=== PATIENT | male | born 1970 | race Caucasian/White ===

== ENCOUNTER 2016-12-13 20:05 | Emergency (ER) | payer OTHER ==
--- NOTE | 2016-12-13 22:51 | ED ORDER SUMMARY ---
..... Patient: KAREN SCHWARTZ OrderSheet [facility] VisitID: [id number] [address] [place] [address] 46y, M Registration Date/Time: 12/13/2016 ORDER SHEET Weight: 99.7 kg (stated) Allergies: Allopurinol, Ceftazadine GENERAL ORDERS: CBC w Diff Urgent (21:45 12/13/2016 Brandon Mcelroy) (Ack 21:46 Kiera ER Product Assembler) (Sent 21:58 IJurca ER Tech1) (22:23 IJurca ER Tech1) CMP Urgent (21:45 12/13/2016 Brandon Mcelroy) (Ack 21:46 Kiera ER Product Assembler) (Sent 21:58 IJurca ER Tech1) (22:23 IJurca ER Tech1) MEDICATION ORDERS: Fluorescein Eye Strips 1 strips (NOW) (21:01 12/13/2016 Brandon Mcelroy) (Ack 21:03 JQuivey R.N.) (21:28 JQuivey R.N.) Proparacaine Eye Drops (Solution 0.5 %) 2 drops (place at bedside) (21:01 12/13/2016 Brandon Mcelroy) (Ack 21:03 JQuivey R.N.) (21:28 JQuivey R.N.) Percocet PO 5/325 mg (HIGH ALERT MEDICATION, NOW) (21:21 12/13/2016 Brandon Mcelroy) (21:30 JRomanelli R.N.) Percocet PO 5/325 mg (HIGH ALERT MEDICATION, NOW) (22:18 12/13/2016 Brandon Mcelroy) (Ack 22:36 JQuivey R.N.) (22:39 JQuivey R.N.) - (gabapentin 300 mg PO once now) (22:48 12/13/2016 Brandon Mcelroy) (Cancelled: Physician Order23:17 JRomanelli R.N.) IV FLUIDS: ORDER SHEET NOTES: [Electronically signed by Kevin Bellamy R.N. (23:18 12/13/2016)] [Electronically signed by Tommy Abrams Dr. (06:25 12/15/2016)] [Electronically locked/signed by Kevin Bellamy R.N. (23:18 12/13/2016)]
--- NOTE | 2016-12-13 22:51 | ED NURSING NOTES ---
Clinical Report - [facility] [address] [place] [address] 12/13/2016 20:06 [id number] Triage time 20:Dec 13 2016. Acuity: LEVEL 3. Chief Complaint: RIGHT EYE PROBLEM. (Shingles Infection). Alert. ART COMA SCORE: Art Coma Scale: 15- eyes open spontaneously (4); best verbal response- oriented x 4 (5); best motor response- obeys commands (6). --20:19 Kevin Bellamy R.N. 20:09 12/13/16. BP: 137/89. HR: 102. RR: 16. O2 saturation: 100% on room air. Temp: 98.7 F (oral). --20:19 Kevin Bellamy R.N. VISUAL ACUITY: Visual acuity performed: left eye 20/70; right eye 20/50. --20:33 Kevin Bellamy R.N. Weight: 99.7 kg stated. Height/Length: 75 inches Per Patient. BMI: 27.5. --20:17 Kevin Bellamy R.N. Medications Acyclovir Oral 800 mg, 5 x daily. Acyclovir Oral. --20:13 Kevin Bellamy R.N. Olfloxcin 0.3 % eye gtts--one gtt to affected eye, 4x a day. --20:26 Kevin Bellamy R.N. Zoloft Oral 100 mg, daily. --20:29 Kevin Bellamy R.N. The following entry was struck by Kevin Bellamy R.N., 20:31 (12/13/16) Reason - other. <<STRICKEN ENTRY-- Acyclovir Oral 800 mg, 2x a day. --20:24 Kevin Bellamy R.N. --END STRIKE>> The following entry was struck and corrected by Kevin Bellamy R.N., 20:30 (12/13/16) Reason for correction - other. <<STRICKEN ENTRY-- Acyclovir Oral. --20:13 Kevin Bellamy R.N. --END STRIKE>>. Allergies Allopurinol.(Anaphylaxis, angioedema) Ceftazadine.(angioedema) --20:24 Kevin Bellamy R.N. History Arrived by private vehicle. Historian: patient. Unaccompanied. Primary physician (Jaime [place], [place]). ( Shigles infection (R) Eye. Pt states that the infection was diagnosed yesterday and was placed on Acylovir and and antibiotic (he can't remember the name). Pt thinks that the infection started about 7 days ago). Onset. (about 7 days ago). He did not sustain an injury. He has had eye discomfort involving the right eye. SOCIAL HX: Former smoker, end date 2005. No alcohol use or drug use. No infectious disease exposure. ABUSE ASSESSMENT: No report of abuse. FALL RISK ASSESSMENT: Fall risk assessment completed. No fall risk identified. NUTRITIONAL RISK ASSESSMENT: The nutritional risk assessment revealed no deficiencies. FUNCTIONAL ASSESSMENT: Functional assessment: no impairments noted. LEARNING NEEDS ASSESSMENT: The learning needs assessment revealed no barriers. SKIN INTEGRITY ASSESSMENT: Skin integrity risk assessment completed. No skin integrity risk identified. --20:19 Kevin Bellamy R.N. PROBLEMS: Contusion. Fall. Chemotherapy-completed. Leukemia. Hypokalemia. Hyponatremia. Thrombocytopenia. Neutropenia. Anemia. Depression. Anxiety Reaction. AML. --20:30 Kevin Bellamy R.N. ADDITIONAL SURGERIES: Bone marrow transplant. Central venous cannula insertion. Tonsillectomy. --20:30 Kevin Bellamy R.N. Interventions ID band on patient. To treatment room. --20:19 Kevin Bellamy R.N. PHYSICAL ASSESSMENT Ambulatory to room. GENERAL / NEURO / PSYCH: Alert. Appears in pain. HEENT: No facial asymmetry noted. Pupils equal, round and reactive to light. RESPIRATORY: Respirations not labored. CVS: Capillary refill less than 2 seconds. SKIN: Skin is warm and dry. Normal skin turgor. --20:32 Kevin Bellamy R.N. NURSING PROGRESS NOTES Patient gowned. Reassurance given. Patient identifiers checked. Call light placed in reach. Side rails up x 1. Bed placed in lowest position. Brakes of bed on. Patient ready for evaluation- chart flagged and ED physician notified. --20:32 Kevin Bellamy R.N. 21:18 12/13/2016 FLUORESCEIN Opth soln 1 Strip given. (placed at bedside). --21:28 Kevin Trujillo R.N. 21:18 12/13/2016 Proparacaine Eye Drops 2 drop given. (placed at bedside). --21:28 Kevin Trujillo R.N. 21:30 12/13/2016 Percocet (Oxycodone-Acetaminophen) PO 5/325 mg Tablets 1 tab given. Allergies verified, confirmed 5 rights and sedative warning given. --21:30 Kevin Bellamy R.N. Patient ID band checked for patient name and birthdate: patient confirmed. Blood samples drawn from the right antecubital space with 23g butterfly by tech ; labeled in presence of the patient and sent to lab: [employer] set. --21:57 Ran Ballard, BEN Tech1 22:38 12/13/2016 Percocet (Oxycodone-Acetaminophen) PO 10/650 mg Tablets 1 tab given. Allergies verified, confirmed 5 rights and sedative warning given to the patient. --22:39 Kevin Trujillo R.N. DISPOSITION / DISCHARGE 22:55 12/13/16. BP: 123/87. HR: 74. RR: 16. O2 saturation: 99% on room air. Temp: 98.3 F (oral). Pain level now: 8/10. Additional comments: (R)s marly of head and (R) Eye pain. --23:08 Kevin Bellamy R.N. Departure time: 5. --23:11 Kevin Bellamy R.N. 22:55. Condition at departure: improved. No learning barriers present. Discharge instructions provided and reviewed with the patient. Reviewed medication(s) information (prescription given to pt. Continue taking your usually prescribed medications). Reviewed referral to family practice for followup. Patient verbalized understanding. Written instructions provided in German. The patient was discharged by the physician. He was discharged home and accompanied by tax manager. He left the Emergency Department ambulatory and via private vehicle. Operations Section Manager driving. FALL RISK ASSESSMENT: Fall risk assessment completed. No fall risk identified. --23:14 Kevin Bellamy R.N. Locked/Released at 12/13/2016 23:18 by Kevin Bellamy R.N.
--- NOTE | 2016-12-13 22:51 | ED ORDER SUMMARY ---
..... Patient: KAREN SCHWARTZ OrderSheet [facility] VisitID: [id number] [address] [place] [address] 46y, M Registration Date/Time: 12/13/2016 ORDER SHEET Weight: 99.7 kg (stated) Allergies: Allopurinol, Ceftazadine GENERAL ORDERS: CBC w Diff Urgent (21:45 12/13/2016 Brandon Mcelroy) (Ack 21:46 Kiera ER Drain Tiler) (Sent 21:58 IJurca ER Tech1) (22:23 IJurca ER Tech1) CMP Urgent (21:45 12/13/2016 Brandon Mcelroy) (Ack 21:46 Kiera ER Drain Tiler) (Sent 21:58 IJurca ER Tech1) (22:23 IJurca ER Tech1) MEDICATION ORDERS: Fluorescein Eye Strips 1 strips (NOW) (21:01 12/13/2016 Brandon Mcelroy) (Ack 21:03 JQuivey R.N.) (21:28 JQuivey R.N.) Proparacaine Eye Drops (Solution 0.5 %) 2 drops (place at bedside) (21:01 12/13/2016 Brandon Mcelroy) (Ack 21:03 JQuivey R.N.) (21:28 JQuivey R.N.) Percocet PO 5/325 mg (HIGH ALERT MEDICATION, NOW) (21:21 12/13/2016 Brandon Mcelroy) (21:30 JRomanelli R.N.) Percocet PO 5/325 mg (HIGH ALERT MEDICATION, NOW) (22:18 12/13/2016 Brandon Mcelroy) (Ack 22:36 JQuivey R.N.) (22:39 JQuivey R.N.) - (gabapentin 300 mg PO once now) (22:48 12/13/2016 Brandon Mcelroy) (Cancelled: Physician Order23:17 JRomanelli R.N.) IV FLUIDS: ORDER SHEET NOTES: [Electronically signed by Kevin Bellamy R.N. (23:18 12/13/2016)] [Electronically signed by Tommy Abrams Dr. (06:25 12/15/2016)] [Electronically locked/signed by Kevin Bellamy R.N. (23:18 12/13/2016)]
--- NOTE | 2016-12-13 22:51 | ED CLINICAL REPORT ---
Clinical Report - Physicians/Mid Levels [facility] [address] [place] [address] 12/13/2016 20:06 Patient: KAREN SCHWARTZ Time Seen: 2100. Arrived- By private vehicle. Historian- patient. HISTORY OF PRESENT ILLNESS Chief Complaint: EYE REDNESS and IRRITATION. This started 1 week ago, involves the right eye, is characterized as moderate in severity and is still present. Eye pain, discomfort, burning, redness and irritation. Similar symptoms previously: (no). Seen in a clinic. Evaluation/treatment: medication prescribed. Diagnosis: (shingles). REVIEW OF SYSTEMS No fever, sore throat or cough. All systems otherwise negative, except as recorded above. PAST HISTORY See nurses notes. Tetanus immunization status is up-to-date. Medications: Zoloft Oral 100 mg, daily. Olfloxcin 0.3 % eye gtts--one gtt to affected eye, 4x a day. Acyclovir Oral 800 mg, 5 x daily. Acyclovir Oral. Allergies: Allopurinol.(Anaphylaxis, angioedema) Ceftazadine.(angioedema). SOCIAL HISTORY Never smoker. No alcohol use or drug use. ADDITIONAL NOTES The nursing notes have been reviewed. PHYSICAL EXAM Vital Signs: 12/13/2016 20:09 BP: 137/89. HR: 102. RR: 16. O2 saturation: 100%. Temp: 98.7 F. Blood pressure normal. Oxygen saturation normal. Appearance: Alert. Oriented X3. No acute distress. HEENT: Ears normal. Nose normal. Pharynx normal. Head appears normal to external inspection. Eyes: Visual acuity noted- see nurse's notes. Pupils equal, round and reactive to light. Accommodation normal. Anterior chambers clear. +. No consensual photophobia. No foreign bodies. Negative Cell and flare. Small punctate areas of uptake of dye in the superior and inferior aspect of the patient's cornea around the periphery Only on the right. Negative Betsy sign. Negative Betsy sign. No dendritic pattern. Lids and lashes and lacrimal's are unaffected. Right-sided conjunctival injection. Rt Eye: Pupil 3mm. Lt Eye: Pupil 3mm. Neck: Neck supple. Normal inspection. CVS: Normal heart rate and rhythm. Heart sounds normal. Respiratory: No respiratory distress. Breath sounds normal. Abdomen: Nontender. No organomegaly. : Normal genitalia. Skin: (vesicular rash to the V1 dermatome. no other dermatome involved. no involvement of the tip of the nose.). Extremities: Extremities negative. Neuro: Oriented X 3. Mood/affect normal. No motor deficit. No sensory deficit. LABS, X-RAYS, AND EKG Laboratory Tests: CBC w Diff: (SALAS: 12/13/2016 21:53) ( MsgRcvd 12/13/2016 22:05) Final results Test Result Flag Units (Reference) WHITE BLOOD COUNT 8.4 K/uL (4.5-11.5) RED BLOOD COUNT 4.46 L M/uL (4.50-5.90) HEMOGLOBIN 13.8 gm/dL (13.5-17.5) HEMATOCRIT 40.5 L % (41.0-53.0) MEAN CELL VOLUME 91 fL (80-100) MEAN CORPUSCULAR HGB 31 pg (26-34) MEAN CORPUSCULAR HGB CONC 34 g/dL (31-37) RED CELL DISTRIBUTION WIDTH 12.7 % (11.6-14.8) PLATELET COUNT 145 L K/uL (150-400) NEUTROPHIL % 77.8 H % (50-75) LYMPH % 16.0 L % (25-40) MONO % 5.9 % (3-14) EOSINOPHIL % 0.1 % (0-4) BASOPHIL % 0.2 % (0-2) CMP: (SALAS: 12/13/2016 21:53) ( MsgRcvd 12/13/2016 22:15) Final results Test Result Flag Units (Reference) GLUCOSE 114 H mg/dL (70-110) BUN 15 mg/dL (7-18) CREATININE 0.9 mg/dL (0.6-1.3) Estimated GFR >60 mL/min Estimated GFR- >60 mL/min Note: Persistent reduction over 3 months in eGFR<60 mL/min/1.73 m2 defines CKD. Patients with eGFR values>=60 mL/min/1.73 m2 may also have CKD if evidence ofpersistent proteinuria. Additional information may be foundat www.kidney.org. SODIUM 142 mmol/L (136-145) POTASSIUM 4.2 mmol/L (3.5-5.1) CHLORIDE 106 mmol/L (98-107) CARBON DIOXIDE 30 mmol/L (21-32) CALCIUM 9.1 mg/dL (8.5-10.1) TOTAL PROTEIN 7.2 g/dL (6.4-8.2) ALBUMIN 3.7 g/dL (3.3-5.0) BILIRUBIN, TOTAL 0.3 mg/dL (0.0-1.0) ALKALINE PHOSPHATASE 163 H U/L (46-116) AST (SGOT) 23 U/L (15-37) ALT (SGPT) 60 U/L (12-78) . PROGRESS AND PROCEDURES Course of Care: the patient is a 46-year-old male presenting for reevaluation of right-sidedfacial pain and right-sided eye irritation. At this time would be concern for involvement of the patient's right I. Patient fully has involvement of the V1 dermatome however patient does not have any signs of skin rash on the V2 dermatomewhich would be affecting the patient's right cornea. Patient does have a history of leukemia. Patient could be immunocompromised. Patient however does not have any other Concerning systemic symptoms. Because of the patient's findings, we'll consult ophthalmology in regards to his treatment and plan. Treatment has been somewhat complicated because patient has been self medicating with prednisone eyedrops from his prior medical encounters. After consult with ophthalmology was obtained. No further recommendations made except for consult with neurology for possible disseminated zosters. Was able to speak to neurology at [facility]. No concern for disseminated zoster at this time. Did not feel lumbar puncture would be required at this time. Laboratory studies were drawn in anticipation for neurology consult. No significant abnormalities noted with patient's laboratory studies. Because of the patient's negative workup here in the emergency department andrecommendations made by specialist, feel the patient is a stable outpatient candidate. Did not fill patient is being admitted to the hospital at this time. Discussed the patient is workup here in emergency department including diagnosis, home care, follow-up, and return precautions. All questions have been answered. The patient expressed understanding of these instructions and was agreeable to them. Consult obtained from neurology and ophthamology. Disposition: Discharged. Condition: good. CLINICAL IMPRESSION Acute viral conjunctivitis of the right eye. Herpes zoster with keratitis. INSTRUCTIONS Warnings: GENERAL WARNINGS: Return or contact your physician immediately if your condition worsens or changes unexpectedly, if not improving as expected, or if other problems arise. Specifically return if pain, vomiting, bleeding, breathing difficulty or fever. Prescription Medications: Percocet 5 mg/325 mg: take 1-2 tablets orally every 6 hours as needed for pain. Dispense twenty (20). No refill. Substitution is permissible. Gabapentin 300 mg capsules: take 1 orally. Dispense thirty (30). No refill. (as needed for pain every 8 hours) OTC Medications: Lacri-Lube ophthalmic ointment (available over the counter): take according to label instructions. Follow-up: Return to the emergency department as needed. Follow up with your doctor in three days. Reason for referral: recheck today's concerns. Summary of care provided to patient via paper. Screening today revealed the patient's blood pressure to be in the normal range. The patient should follow up with a primary care provider for blood pressure management. Understanding of the discharge instructions verbalized by patient. Follow-up with: Adin Kramer MD, Ophthalmology, , [facility], [address] [place] [address] Follow up. Reason for referral: Call first thing in the morning in 2 days for appointment as soon as possible. Summary of care provided to patient via paper. (Electronically signed by Tommy Abrams Dr. 12/15/2016 6:25)
--- NOTE | 2016-12-13 22:51 | ED NURSING NOTES ---
Clinical Report - Nurses [facility] [address] [place] [address] 12/13/2016 20:06 [id number] Triage time 20:Dec 13 2016. Acuity: LEVEL 3. Chief Complaint: RIGHT EYE PROBLEM. (Shingles Infection). Alert. ART COMA SCORE: Art Coma Scale: 15- eyes open spontaneously (4); best verbal response- oriented x 4 (5); best motor response- obeys commands (6). --20:19 Kevin Bellamy R.N. 20:09 12/13/16. BP: 137/89. HR: 102. RR: 16. O2 saturation: 100% on room air. Temp: 98.7 F (oral). --20:19 Kevin Bellamy R.N. VISUAL ACUITY: Visual acuity performed: left eye 20/70; right eye 20/50. --20:33 Kevin Bellamy R.N. Weight: 99.7 kg stated. Height/Length: 75 inches Per Patient. BMI: 27.5. --20:17 Kevin Bellamy R.N. Medications Acyclovir Oral 800 mg, 5 x daily. Acyclovir Oral. --20:13 Kevin Bellamy R.N. Olfloxcin 0.3 % eye gtts--one gtt to affected eye, 4x a day. --20:26 Kevin Bellamy R.N. Zoloft Oral 100 mg, daily. --20:29 Kevin Bellamy R.N. The following entry was struck by Kevin Bellamy R.N., 20:31 (12/13/16) Reason - other. <<STRICKEN ENTRY-- Acyclovir Oral 800 mg, 2x a day. --20:24 Kevin Bellamy R.N. --END STRIKE>> The following entry was struck and corrected by Kevin Bellamy R.N., 20:30 (12/13/16) Reason for correction - other. <<STRICKEN ENTRY-- Acyclovir Oral. --20:13 Kevin Bellamy R.N. --END STRIKE>>. Allergies Allopurinol.(Anaphylaxis, angioedema) Ceftazadine.(angioedema) --20:24 Kevin Bellamy R.N. History Arrived by private vehicle. Historian: patient. Unaccompanied. Primary physician (Jaime [place], [place]). ( Shigles infection (R) Eye. Pt states that the infection was diagnosed yesterday and was placed on Acylovir and and antibiotic (he can't remember the name). Pt thinks that the infection started about 7 days ago). Onset. (about 7 days ago). He did not sustain an injury. He has had eye discomfort involving the right eye. SOCIAL HX: Former smoker, end date 2005. No alcohol use or drug use. No infectious disease exposure. ABUSE ASSESSMENT: No report of abuse. FALL RISK ASSESSMENT: Fall risk assessment completed. No fall risk identified. NUTRITIONAL RISK ASSESSMENT: The nutritional risk assessment revealed no deficiencies. FUNCTIONAL ASSESSMENT: Functional assessment: no impairments noted. LEARNING NEEDS ASSESSMENT: The learning needs assessment revealed no barriers. SKIN INTEGRITY ASSESSMENT: Skin integrity risk assessment completed. No skin integrity risk identified. --20:19 Kevin Bellamy R.N. PROBLEMS: Contusion. Fall. Chemotherapy-completed. Leukemia. Hypokalemia. Hyponatremia. Thrombocytopenia. Neutropenia. Anemia. Depression. Anxiety Reaction. AML. --20:30 Kevin Bellamy R.N. ADDITIONAL SURGERIES: Bone marrow transplant. Central venous cannula insertion. Tonsillectomy. --20:30 Kevin Bellamy R.N. Interventions ID band on patient. To treatment room. --20:19 Kevin Bellamy R.N. PHYSICAL ASSESSMENT Ambulatory to room. GENERAL / NEURO / PSYCH: Alert. Appears in pain. HEENT: No facial asymmetry noted. Pupils equal, round and reactive to light. RESPIRATORY: Respirations not labored. CVS: Capillary refill less than 2 seconds. SKIN: Skin is warm and dry. Normal skin turgor. --20:32 Kevin Bellamy R.N. NURSING PROGRESS NOTES Patient gowned. Reassurance given. Patient identifiers checked. Call light placed in reach. Side rails up x 1. Bed placed in lowest position. Brakes of bed on. Patient ready for evaluation- chart flagged and ED physician notified. --20:32 Kevin Bellamy R.N. 21:18 12/13/2016 FLUORESCEIN Opth soln 1 Strip given. (placed at bedside). --21:28 Kevin Trujillo R.N. 21:18 12/13/2016 Proparacaine Eye Drops 2 drop given. (placed at bedside). --21:28 Kevin Trujillo R.N. 21:30 12/13/2016 Percocet (Oxycodone-Acetaminophen) PO 5/325 mg Tablets 1 tab given. Allergies verified, confirmed 5 rights and sedative warning given. --21:30 Kevin Bellamy R.N. Patient ID band checked for patient name and birthdate: patient confirmed. Blood samples drawn from the right antecubital space with 23g butterfly by tech ; labeled in presence of the patient and sent to lab: [employer] set. --21:57 Ran Ballard, BEN Tech1 22:38 12/13/2016 Percocet (Oxycodone-Acetaminophen) PO 10/650 mg Tablets 1 tab given. Allergies verified, confirmed 5 rights and sedative warning given to the patient. --22:39 Kevin Trujillo R.N. DISPOSITION / DISCHARGE 22:55 12/13/16. BP: 123/87. HR: 74. RR: 16. O2 saturation: 99% on room air. Temp: 98.3 F (oral). Pain level now: 8/10. Additional comments: (R)s marly of head and (R) Eye pain. --23:08 Kevin Bellamy R.N. Departure time: 5. --23:11 Kevin Bellamy R.N. 22:55. Condition at departure: improved. No learning barriers present. Discharge instructions provided and reviewed with the patient. Reviewed medication(s) information (prescription given to pt. Continue taking your usually prescribed medications). Reviewed referral to family practice for followup. Patient verbalized understanding. Written instructions provided in Uzbek. The patient was discharged by the physician. He was discharged home and accompanied by assistant sales center manager. He left the Emergency Department ambulatory and via private vehicle. Sales Ledger Administrator driving. FALL RISK ASSESSMENT: Fall risk assessment completed. No fall risk identified. --23:14 Kevin Bellamy R.N. Locked/Released at 12/13/2016 23:18 by Kevin Bellamy R.N.
--- NOTE | 2016-12-15 06:25 | ED MAR SUMMARY ---
..... Medication Administration Record [facility] [address] [place] [address] Patient: KAREN SCHWARTZ Visit ID: [id number] 46y, M Weight: 99.7 kg Height/Length: 75 in BMI: 27.5 ALLERGIES: Allopurinol, Ceftazadine Given 21:18 12/13/2016 Kevin Trujillo RNatividadNNatividad Medication Administered: FLUORESCEIN [EYE STRIPS], Dose: 1 Strip Opth soln. Medication Ordered: Fluorescein Eye Strips 1 strips (NOW). Given 21:18 12/13/2016 Kevin Trujillo R.NNatividad Medication Administered: PROPARACAINE [EYE DROPS], Dose: 2 drop Eye Drops. Medication Ordered: Proparacaine Eye Drops (Solution 0.5 %) 2 drops (place at bedside). Given 21:30 12/13/2016 Kevin Bellamy R.N. Medication Administered: PERCOCET [PO] (OXYCODONE-ACETAMINOPHEN), Dose: 1 tab 5/325 mg Tablets PO. Medication Ordered: Percocet PO 5/325 mg (HIGH ALERT MEDICATION, NOW). Given 22:38 12/13/2016 Kevin Trujillo RNatividadNNatividad Medication Administered: PERCOCET [PO] (OXYCODONE-ACETAMINOPHEN), Dose: 1 tab 10/650 mg Tablets PO. Medication Ordered: Percocet PO 5/325 mg (HIGH ALERT MEDICATION, NOW).
--- NOTE | 2016-12-15 06:25 | ED MED RECONCILIATION SUMMARY ---
Patient: KAREN SCHWARTZ Medication Reconciliation Report [facility] VisitID: [id number] [address] [place] [address] 46y, M Registration Date/Time: 12/13/2016 Weight: 99.7 kg Height/Length: 75 in. BMI: 27.5 ALLERGIES: Allopurinol, Ceftazadine The patient's Home Medications are listed below: THE FOLLOWING MEDICATIONS NEED TO BE RECONCILED: Acyclovir Oral 800 mg, 5 x daily Acyclovir Oral Olfloxcin 0.3 % eye gtts--one gtt to affected eye, 4x a day Zoloft Oral 100 mg, daily The source(s) of the original Home Medication information: Not obtained. The following Medications were given to the patient in the Emergency Department: FLUORESCEIN [EYE STRIPS] Opth soln 1 Strip, administered: 12/13/2016 9:18:00 PM Proparacaine [Eye Drops] Eye Drops 2 drop, administered: 12/13/2016 9:18:00 PM Percocet [PO] PO 1 tab, administered: 12/13/2016 9:30:00 PM Percocet [PO] PO 1 tab, administered: 12/13/2016 10:38:00 PM The following Medications were prescribed to the patient: Lacri-Lube ophthalmic ointment (available over the counter): take according to label instructions. -- Tommy Abrams Dr. Percocet 5 mg/325 mg: take 1-2 tablets orally every 6 hours as needed for pain. Dispense twenty (20). No refill. Substitution is permissible. -- Tommy Abrams Dr. Gabapentin 300 mg capsules: take 1 orally. Dispense thirty (30). No refill.(as needed for pain every 8 hours) -- Tommy Abrams Dr.
--- NOTE | 2016-12-15 06:25 | ED MED RECONCILIATION SUMMARY ---
Patient: KAREN SCHWARTZ Medication Reconciliation Report [facility] VisitID: [id number] [address] [place] [address] 46y, M Registration Date/Time: 12/13/2016 Weight: 99.7 kg Height/Length: 75 in. BMI: 27.5 ALLERGIES: Allopurinol, Ceftazadine The patient's Home Medications are listed below: THE FOLLOWING MEDICATIONS NEED TO BE RECONCILED: Acyclovir Oral 800 mg, 5 x daily Acyclovir Oral Olfloxcin 0.3 % eye gtts--one gtt to affected eye, 4x a day Zoloft Oral 100 mg, daily The source(s) of the original Home Medication information: Not obtained. The following Medications were given to the patient in the Emergency Department: FLUORESCEIN [EYE STRIPS] Opth soln 1 Strip, administered: 12/13/2016 9:18:00 PM Proparacaine [Eye Drops] Eye Drops 2 drop, administered: 12/13/2016 9:18:00 PM Percocet [PO] PO 1 tab, administered: 12/13/2016 9:30:00 PM Percocet [PO] PO 1 tab, administered: 12/13/2016 10:38:00 PM The following Medications were prescribed to the patient: Lacri-Lube ophthalmic ointment (available over the counter): take according to label instructions. -- Tommy Abrams Dr. Percocet 5 mg/325 mg: take 1-2 tablets orally every 6 hours as needed for pain. Dispense twenty (20). No refill. Substitution is permissible. -- Tommy Abrams Dr. Gabapentin 300 mg capsules: take 1 orally. Dispense thirty (30). No refill.(as needed for pain every 8 hours) -- Tommy Abrams Dr.
--- NOTE | 2016-12-15 06:25 | ED DISCHARGE INSTRUCTIONS ---
Patient: KAREN SCHWARTZ General Instructions [facility] VisitID: [id number] [place] [address] 46y, M Registration Date/Time: 12/13/2016 Acute viral conjunctivitis of the right eye. Herpes zoster with keratitis. INSTRUCTIONS Warnings: GENERAL WARNINGS: Return or contact your physician immediately if your condition worsens or changes unexpectedly, if not improving as expected, or if other problems arise. Specifically return if pain, vomiting, bleeding, breathing difficulty or fever. Prescription Medications: Percocet 5 mg/325 mg: take 1-2 tablets orally every 6 hours as needed for pain. Dispense twenty (20). No refill. Substitution is permissible. Gabapentin 300 mg capsules: take 1 orally. Dispense thirty (30). No refill. (as needed for pain every 8 hours) OTC Medications: Lacri-Lube ophthalmic ointment (available over the counter): take according to label instructions. Follow-up: Return to the emergency department as needed. Follow up with your doctor in three days. Reason for referral: recheck today's concerns. Summary of care provided to patient via paper. Screening today revealed the patient's blood pressure to be in the normal range. The patient should follow up with a primary care provider for blood pressure management. Understanding of the discharge instructions verbalized by patient. Follow-up with: Adin Kramer MD, Ophthalmology, , [facility], [address] [place] [address] Follow up. Reason for referral: Call first thing in the morning in 2 days for appointment as soon as possible. Summary of care provided to patient via paper. ADDITIONAL INFORMATION Conjunctivitis, Viral Viral Conjunctivitis (sometimes calledPink Eye) is a common infection of the eye. This infection is very contagious. Touching the infected eye then touching another person passes this infection. It can also be spread it from one eye to the other in this same way. The most common symptoms include redness, discharge from the eye, swollen eyelids, and a gritty or scratchy feeling in the eye. This condition will take about 7-10 days to go away. Antibiotic eye drops will not kill the virus but may be prescribed to prevent a secondary bacterial infection. Home Care: Apply a towel soaked in warm water to the affected eye 3-4 times a day (just before applying medicine to the eye). It is common to have mucus drainage during the night, causing the eyelids to become crusted by morning. Use a warm wet cloth to wipe this away. Be sure antibiotics are taken as directed until all the medicine is gone. You may use acetaminophen (Tylenol) or ibuprofen (Motrin, Advil) to control pain, unless another medicine was prescribed. In infants over six months of age, you may use ibuprofen (Children's Motrin) instead of Tylenol. [NOTE : If the patient has chronic liver or kidney disease or ever had a stomach ulcer or GI bleeding, talk with your doctor before using these medicines.] (Aspirin should never be used in anyone under 18 years of age who is ill with a fever. It may cause severe liver damage.) Wash your hands before and after touching the affected eye to prevent spreading the infection to your other eye and to others. The infected person should avoid sharing towels, washcloths and pillows with others since this may spread the infection. This illness is contagious during the first week, and children with this illness should be kept out of day care and school until the redness clears. Follow Up with your doctor or this facility as directed, or if there has not been improvement within five days. Get Prompt Medical Attention if any of the following occur: Worsening vision Increasing pain in the eye Increasing swelling or redness of the eyelid Redness spreading to the face around the eye Large amount of green or yellow drainage from the eye Severe itching in or around the eye Fever over 100.0F (37.8C) oral, or over 101.0F (38.3C) rectal Shingles Anyone who has had chicken pox may get shingles later in life. It is caused by the same virus that has remained dormant (asleep) in your body. Shingles usually occurs in adults over the age of 50 or those with lowered immunity (cancer treatment, prolonged steroid use, HIV or AIDS). It starts as a tingling patch of skin on one side of the body. During the first several days small painful blisters appear in this area. However, unlike chicken pox the rash does not spread to the rest of the body. The blister fluid contains the virus. Exposure to shingles cannot cause shingles. However, it can cause chicken pox in anyone who has never had chicken pox before. The contagious period ends when all blisters have crusted over (usually about two weeks after the illness begins). Scarring may occur where the blisters appear. Sometimes there is continued sensitivity and pain in the involved patch of skin for months after the infection (neuralgia). Persons older than 50 or those with a weakened immune system may be treated with antiviral medicines to reduce pain, shorten the illness and prevent neuralgia. Zostavax is a vaccine that can help prevent shingles or make it less painful. It is recommended for adults over the age of 60 who have had chicken pox in the past, but not shingles. Adults over 60 who have had neither chicken pox nor shingles can prevent both diseases with a Varicella vaccine. Home Care: You may use acetaminophen (Tylenol) or ibuprofen (Motrin, Advil) to control pain, unless another medicine was prescribed. [NOTE: If you have chronic liver or kidney disease or ever had a stomach ulcer or GI bleeding, talk with your doctor before using these medicines.] (Aspirin should never be used in anyone under 18 years of age who is ill with a fever. It may cause severe liver damage.) To relieve itching and pain, make a solution of cool water mixed with cornstarch, baking soda, Aveeno Oatmeal, or Domeboro powder (available without a prescription). Apply the solution as a compress to the area. This will soothe the skin. Calamine or Caladryl lotion may help. Oral Benadryl (diphenhydramine) is an antihistamine available at drug and grocery stores. Unless a prescription antihistamine was given, Benadryl may be used to reduce itching if large areas of the skin are involved. Use lower doses during the daytime and higher doses at bedtime since the drug may make you sleepy. [NOTE: Do not use Benadryl if you have glaucoma or if you are a man with trouble urinating due to an enlarged prostate.] Claritin (loratidine) is an antihistamine that causes less drowsiness and is a good alternative for daytime use. Wash skin with soap and water to keep rash free of infection. Trim fingernails to prevent scratching. Scratching the sores may leave scars. Stay home from work or school until all blisters have formed a crust and you are no longer contagious. Follow Up with your doctor or as directed by our staff if the above measures do not bring relief. GET PROMPT MEDICAL ATTENTION if any of the following occur: Headache or stiff neck Increasing drowsiness, confusion or bizarre behavior Cough with trouble breathing or fast breathing (over 25 breaths per minute) Pain, redness or swelling of a joint Fever of 100.4F (38C) or higher, or as directed by your healthcare provider Eye pain or changes in vision or sores that appear near the eye Signs of skin infection (yellow or white drainage from the sores, increasing redness or pain) Weakness or numbness of an arm or leg Difficulty speaking, swallowing or walking Seizure Oxycodone Hydrochloride, Acetaminophen Oral tablet What is this medicine? ACETAMINOPHEN; OXYCODONE (a set a NASREEN hannah fen; ox i KOE done) is a pain reliever. It is used to treat mild to moderate pain. How should I use this medicine? Take this medicine by mouth with a full glass of water. Follow the directions on the prescription label. Take your medicine at regular intervals. Do not take your medicine more often than directed. Talk to your medical doctor nuclear medicine regarding the use of this medicine in children. Special care may be needed. Patients over 65 years old may have a stronger reaction and need a smaller dose. What side effects may I notice from receiving this medicine? Side effects that you should report to your doctor or health career discovery teacher as soon as possible: allergic reactions like skin rash, itching or hives, swelling of the face, lips, or tongue breathing difficulties, wheezing confusion light headedness or fainting spells severe stomach pain yellowing of the skin or the whites of the eyes Side effects that usually do not require medical attention (report to your doctor or health career discovery teacher if they continue or are bothersome): dizziness drowsiness nausea vomiting What may interact with this medicine? alcohol antihistamines barbiturates like amobarbital, butalbital, butabarbital, methohexital, pentobarbital, phenobarbital, thiopental, and secobarbital benztropine drugs for bladder problems like solifenacin, trospium, oxybutynin, tolterodine, hyoscyamine, and methscopolamine drugs for breathing problems like ipratropium and tiotropium drugs for certain stomach or intestine problems like propantheline, homatropine methylbromide, glycopyrrolate, atropine, belladonna, and dicyclomine general anesthetics like etomidate, ketamine, nitrous oxide, propofol, desflurane, enflurane, halothane, isoflurane, and sevoflurane medicines for depression, anxiety, or psychotic disturbances medicines for sleep muscle relaxants naltrexone narcotic medicines (opiates) for pain phenothiazines like perphenazine, thioridazine, chlorpromazine, mesoridazine, fluphenazine, prochlorperazine, promazine, and trifluoperazine scopolamine tramadol trihexyphenidyl What if I miss a dose? If you miss a dose, take it as soon as you can. If it is almost time for your next dose, take only that dose. Do not take double or extra doses. Where should I keep my medicine? Keep out of the reach of children. This medicine can be abused. Keep your medicine in a safe place to protect it from theft. Do not share this medicine with anyone. Selling or giving away this medicine is dangerous and against the law. Store at room temperature between 20 and 25 degrees C (68 and 77 degrees F). Keep container tightly closed. Protect from light. This medicine may cause accidental overdose and if it is taken by other adults, children, or pets. Flush any unused medicine down the toilet to reduce the chance of harm. Do not use the medicine after the expiration date. What should I tell my health care provider before I take this medicine? They need to know if you have any of these conditions: brain tumor Crohn's disease, inflammatory bowel disease, or ulcerative colitis drink more than 3 alcohol containing drinks per day drug abuse or addiction head injury heart or circulation problems kidney disease or problems going to the bathroom liver disease lung disease, asthma, or breathing problems an unusual or allergic reaction to acetaminophen, oxycodone, other opioid analgesics, other medicines, foods, dyes, or preservatives or trying to get breast-feeding What should I watch for while using this medicine? Tell your doctor or health career discovery teacher if your pain does not go away, if it gets worse, or if you have new or a different type of pain. You may develop tolerance to the medicine. Tolerance means that you will need a higher dose of the medication for pain relief. Tolerance is normal and is expected if you take this medicine for a long time. Do not suddenly stop taking your medicine because you may develop a severe reaction. Your body becomes used to the medicine. This does NOT mean you are addicted. Addiction is a behavior related to getting and using a drug for a non-medical reason. If you have pain, you have a medical reason to take pain medicine. Your doctor will tell you how much medicine to take. If your doctor wants you to stop the medicine, the dose will be slowly lowered over time to avoid any side effects. You may get drowsy or dizzy. Do not drive, use machinery, or do anything that needs mental alertness until you know how this medicine affects you. Do not stand or sit up quickly, especially if you are an older patient. This reduces the risk of dizzy or fainting spells. Alcohol may interfere with the effect of this medicine. Avoid alcoholic drinks. There are different types of narcotic medicines (opiates) for pain. If you take more than one type at the same time, you may have more side effects. Give your health care provider a list of all medicines you use. Your doctor will tell you how much medicine to take. Do not take more medicine than directed. Call emergency for help if you have problems breathing. The medicine will cause constipation. Try to have a bowel movement at least every 2 to 3 days. If you do not have a bowel movement for 3 days, call your doctor or health career discovery teacher. Do not take Tylenol (acetaminophen) or medicines that have acetaminophen with this medicine. Too much acetaminophen can be very dangerous. Many nonprescription medicines contain acetaminophen. Always read the labels carefully to avoid taking more acetaminophen. Gabapentin Oral tablet What is this medicine? GABAPENTIN (GA ba pen tin) is used to control partial seizures in adults with epilepsy. It is also used to treat certain types of nerve pain. How should I use this medicine? Take this medicine by mouth. Swallow it with a drink of water. Follow the directions on the prescription label. If this medicine upsets your stomach, take it with food or milk. Take your medicine at regular intervals. Do not take it more often than directed. If you are directed to break the 600 or 800 mg tablets in half as part of your dose, the extra half tablet should be used for the next dose. If you have not used the extra half tablet within 3 days, it should be thrown away. A special MedGuide will be given to you by the pharmacist with each prescription and refill. Be sure to read this information carefully each time. Talk to your medical doctor nuclear medicine regarding the use of this medicine in children. Special care may be needed. What side effects may I notice from receiving this medicine? Side effects that you should report to your doctor or health career discovery teacher as soon as possible: allergic reactions like skin rash, itching or hives, swelling of the face, lips, or tongue worsening of mood, thoughts or actions of suicide or dying Side effects that usually do not require medical attention (report to your doctor or health career discovery teacher if they continue or are bothersome): constipation difficulty walking or controlling muscle movements dizziness nausea slurred speech tiredness tremors weight gain What may interact with this medicine? Do not take this medicine with any of the following medications: other gabapentin products This medicine may also interact with the following medications: alcohol antacids antihistamines for allergy, cough and cold certain medicines for anxiety or sleep certain medicines for depression or psychotic disturbances homatropine; hydrocodone naproxen narcotic medicines (opiates) for pain phenothiazines like chlorpromazine, mesoridazine, prochlorperazine, thioridazine What if I miss a dose? If you miss a dose, take it as soon as you can. If it is almost time for your next dose, take only that dose. Do not take double or extra doses. Where should I keep my medicine? Keep out of reach of children. Store at room temperature between 15 and 30 degrees C (59 and 86 degrees F). Throw away any unused medicine after the expiration date. What should I tell my health care provider before I take this medicine? They need to know if you have any of these conditions: kidney disease suicidal thoughts, plans, or attempt; a previous suicide attempt by you or a family member an unusual or allergic reaction to gabapentin, other medicines, foods, dyes, or preservatives or trying to get breast-feeding What should I watch for while using this medicine? Visit your doctor or health career discovery teacher for regular checks on your progress. You may want to keep a record at home of how you feel your condition is responding to treatment. You may want to share this information with your doctor or health career discovery teacher at each visit. You should contact your doctor or health career discovery teacher if your seizures get worse or if you have any new types of seizures. Do not stop taking this medicine or any of your seizure medicines unless instructed by your doctor or health career discovery teacher. Stopping your medicine suddenly can increase your seizures or their severity. Wear a medical identification bracelet or chain if you are taking this medicine for seizures, and carry a card that lists all your medications. You may get drowsy, dizzy, or have blurred vision. Do not drive, use machinery, or do anything that needs mental alertness until you know how this medicine affects you. To reduce dizzy or fainting spells, do not sit or stand up quickly, especially if you are an older patient. Alcohol can increase drowsiness and dizziness. Avoid alcoholic drinks. Your mouth may get dry. Chewing sugarless gum or sucking hard candy, and drinking plenty of water will help. The use of this medicine may increase the chance of suicidal thoughts or actions. Pay special attention to how you are responding while on this medicine. Any worsening of mood, or thoughts of suicide or dying should be reported to your health career discovery teacher right away. Women who become while using this medicine may enroll in the [place]pileptic Drug Registry by calling . This registry collects information about the safety of antiepileptic drug use during . You have been given the following additional information: Conjunctivitis, Viral Herpes Zoster Oxycodone Hydrochloride, Acetaminophen Oral tablet Gabapentin Oral tablet (Electronically signed by Tommy Abrams Dr. 12/15/2016 6:25)
--- NOTE | 2016-12-15 06:25 | ED MAR SUMMARY ---
..... Medication Administration Record [facility] [address] [place] [address] Patient: KAREN SCHWARTZ Visit ID: [id number] 46y, M Weight: 99.7 kg Height/Length: 75 in BMI: 27.5 ALLERGIES: Allopurinol, Ceftazadine Given 21:18 12/13/2016 Kevin [address]ad Medication Administered: FLUORESCEIN [EYE STRIPS], Dose: 1 Strip Opth soln. Medication Ordered: Fluorescein Eye Strips 1 strips (NOW). Given 21:18 12/13/2016 Kevin Trujillo R.NNatividad Medication Administered: PROPARACAINE [EYE DROPS], Dose: 2 drop Eye Drops. Medication Ordered: Proparacaine Eye Drops (Solution 0.5 %) 2 drops (place at bedside). Given 21:30 12/13/2016 Kevin Bellamy R.N. Medication Administered: PERCOCET [PO] (OXYCODONE-ACETAMINOPHEN), Dose: 1 tab 5/325 mg Tablets PO. Medication Ordered: Percocet PO 5/325 mg (HIGH ALERT MEDICATION, NOW). Given 22:38 12/13/2016 Kevin Trujlilo RNatividadNNatividad Medication Administered: PERCOCET [PO] (OXYCODONE-ACETAMINOPHEN), Dose: 1 tab 10/650 mg Tablets PO. Medication Ordered: Percocet PO 5/325 mg (HIGH ALERT MEDICATION, NOW).
== END 2016-12-13 22:55 | disposition home or self-care (01) ==
LOC: ED SRH 20:05
DX: B02.33 Zoster keratitis (principal); B30.8 Other viral conjunctivitis; Z79.899 Other long term (current) drug therapy; Z88.1 Allergy status to other antibiotic agents
CPT/HCPCS: 90100; 95059